=== PATIENT | male | born 1960 | race African-American/Black ===

== ENCOUNTER 2024-03-28 18:37 | Emergency (ER) | payer OTHER, SELFPAY ==
[2024-03-28 18:39] VITALS: BP 164/98
--- NOTE | 2024-03-28 19:53 | ED.GENMED ---
History of Present Illness
General
Chief Complaint: Nose Bleed
Time Seen by Provider: 03/28/24 19:52
History of Present Illness
History of Present Illness:
TIME OF INITIAL ENCOUNTER: 7:55 PM
HPI: The patient presents due to right-sided nosebleed that started 10 hours ago. He is not on any antiplatelets or anticoagulation. He has no pain. 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
decades.
EXAM:
GENERAL: Well appearing in no distress
HEENT: Patient arrived with a nasal clamp on with no active bleeding, a large defect through the nasal septum is noted 8:40 PM: I removed the Afrin soaked cotton and
NEUROLOGIC: Excellent strength all extremities, no obvious coordination deficits
PSYCHIATRIC: Appropriate mental status, normal insight and judgement
EXTREMITIES: Nontender, no edema, moves all extremities equally
SKIN: No rash, no lesions
NUMBER AND COMPLEXITY OF PROBLEMS ADDRESSED AT THE ENCOUNTER
� Chronic conditions affecting care: CHF, high blood pressure, hyperlipidemia, diabetes, renal insufficiency, atrial fibrillation not on anticoagulation
� Acute Exacerbation and/or Progression of Chronic Illness: This is an acute problem
� Differential Diagnosis includes: Anterior posterior epistaxis, epistaxis related to dry air
AMOUNT AND/OR COMPLEXITY OF DATA TO BE REVIEWED AND ANALYZED
� I performed an independent evaluation of and my interpretation is:
EKG:
CT:
X-rays:
Laboratory Studies:
Other:
� Review of other/old records: I reviewed records, the patient had normal platelet count in 2021
� Clinical information was obtained by an independent historian: None needed
� Prescriptions/Medications Considered but not given:
� Further testing considered but not performed:
RISK OF COMPLICATIONS AND/OR MORBIDITY OR MORTALITY OF PATIENT MANAGEMENT
� Social determinants of health affecting care: Lives at home
� Discussion with other providers:
� Escalation of care including admission/observation vs risk of discharge considered: The patient's nosebleed was significant up until the time he arrived to the parking lot. He was given a clamp and there has been no further
bleeding. I then used Afrin soaked cotton bilaterally.
ANY OTHER UPDATES:
8:40 PM: I removed the cotton and noted rather large septal defect with scant amount of blood. I used silver nitrate cauterization to a small area. Nasal clamp again placed.
9:10 PM: I removed the nasal clamp and there is no further bleeding�I have given the contact information for local ENT doctor but he states he has been to somebody at [facility] in the past
Past History
Past History
ED Past Medical History: CHF, HTN and Other (diabetes, cirrhosis, hld)
Social History
Tobacco: Non-smoker
Alcohol: None
Drug: None
Employment: Employed
Phy Exam
Physical Exam
Physical Exam:
See HPI
Course
Orders/Labs/Results
Orders:
Orders
03/28/24 19:58
Oxymetazoline HCl [Afrin Nasal [place]] 30 sprays .ROUTE .STK-MED ONE
Vital Signs
Initial and Last Documented VS:
Initial Vital Signs
Temp Pulse Resp BP Pulse Ox
36.6 C 97 20 164/98 98
03/28/24 18:39 03/28/24 18:39 03/28/24 18:39 03/28/24 18:39 03/28/24 18:39
Last Documented Vital Signs
Temp Pulse Resp BP Pulse Ox
36.6 C 97 20 164/98 98
03/28/24 18:39 03/28/24 18:39 03/28/24 18:39 03/28/24 18:39 03/28/24 18:39
*Critical Care Note
Total Time (30-74mins, 75-104mins- exclusive of procedures): Not Applicable
ED Attending Note
-
Portions of this chart may have been created with voice recognition software.� Occasional wrong word or��sound alike� substitutions may have occurred due to the inherent limitations of voice recognition software.
Discharge Plan
Departure
Patient Disposition: Home (Routine Discharge)
Date of Disposition: 03/28/24
Time of Disposition: 21:06
Patient with high blood pressure during this ER visit?: Yes
Discharge Problem:
Acute anterior epistaxis
Instructions: Nosebleeds (DC), BLOOD PRESSURE
Prescriptions:
No Action
hydrocodone-acetaminophen 5-325 mg tablet
1 tab PO Q6H PRN (Reason: back pain) Qty: 10 0RF
sennosides-docusate sodium 8.6-50 mg tablet
1 tab-cap PO BID PRN (Reason: constipation) Qty: 30 0RF
Referrals:
Harman Arce MD [Family Provider] -
Saran Martinez MD [Active] - Follow up in 2-3 days
Activity Restrictions/Additional Instructions:
There appears to be bleeding at the periphery of the nasal septal defect. I have given you the contact information for local ENT doctor, Dr. Martinez. Limit the use of Afrin. I more strongly recommend saline sprays and you can continue using Vaseline
as well. Your blood pressure is also very high and I strongly recommend you follow-up with primary care doctor for reassessment. Poorly controlled high blood pressure can lead to worsening nosebleeds as well.
Interventions
Interventions:
*Risk Screen - Suicide Last Done: 03/28/24 18:39
*General Assessment Last Done: 03/28/24 18:39
*Neglect/Abuse Screening Last Done: 03/28/24 18:39
*ED COVID-19 Vaccine History Last Done: 03/28/24 20:06
ED-EENT Assessment Last Done: 03/28/24 20:06
Discharge Date and Time
Print Language: PALESTINIAN
== END 2024-03-28 21:34 | disposition home or self-care (01) ==
LOC: EMR 18:37
PROVIDERS: EMERGENCY PHYSICIAN Emergency Medicine; FAMILY PHYSICIAN Family Medicine
DX: R04.0 Epistaxis (principal); I11.0 Hypertensive heart disease with heart failure; I50.9 Heart failure, unspecified; E11.9 Type 2 diabetes mellitus without complications; E78.5 Hyperlipidemia, unspecified
CPT/HCPCS: 30901; 99282

== ENCOUNTER 2024-09-11 04:17 | Emergency (ER) | payer OTHER, SELFPAY ==
[2024-09-11] VITALS (10 sets, daily range): BP systolic 92–129; BP diastolic 47–66; BMI 38.1
[2024-09-11 06:25] LABS: Glucose - Point of Care 215 mg/dl (70-99)
--- NOTE | 2024-09-11 06:34 | ED.GENMED ---
History of Present Illness
General
Chief Complaint: Skin Problem
Source: patient
Exam Limitations: none
Time Seen by Provider: 09/11/24 06:10
History of Present Illness
History of Present Illness:
63-year-old male presents from [facility] with worsening sacral wounds. He is chronically on oxygen. He has a history of a situs. He has no other complaints of abdominal pain or shortness of breath. No reported fever.
Past History
Past History
ED Past Medical History: CHF, HTN and Other (diabetes, cirrhosis, hld)
Social History
Tobacco: Non-smoker
Alcohol: None
Drug: None
Employment: Employed
Phy Exam
Physical Exam
Physical Exam:
General: Well-appearing male no acute respiratory distress
HEENT: Normocephalic atraumatic
Heart: Regular rate and rhythm
Lungs: Clear
Abdomen is distended but soft nontender
Ext: no cyanosis
Course
Orders/Labs/Results
Orders:
Orders
09/11/24 07:23
Complete Blood Count/With Diff Urgent
09/11/24 08:19
Basic Metabolic Panel Urgent
09/11/24 11:39
Potassium Urgent
Abnormal Lab Results
09/11/24 09/11/24 09/11/24
06:24 07:23 08:19
RBC 3.28 L 10^6/uL
(4.70-6.10)
Hgb 9.1 L g/dL
(13.0-18.0)
Hct 32.6 L %
(39.0-52.0)
MCV 99.4 H fL
(80.0-94.0)
MCHC 27.9 L g/dL
(33.0-37.0)
RDW 19.4 H %
(11.5-14.5)
Abs Immat Gran (auto) 0.1 H 10^3/uL
(0-0.05)
Absolute Neuts (auto) 8.3 H 10^3/uL
(1.4-6.5)
Absolute Lymphs (auto) 0.5 L 10^3/uL
(1.2-3.4)
Absolute Monos (auto) 0.8 H 10^3/uL
(0.1-0.6)
Immature Gran % 0.9 H %
(0-0.5)
Neutrophils % 82.0 H %
(42.2-75.2)
Lymphocytes % 4.8 L %
(20.5-51.1)
BUN 55 H mg/dl
(9-20)
Creatinine 5.7 H* mg/dL
(0.7-1.3)
Glucose 181 H mg/dl
(70-99)
POC Glucose 215 H mg/dl
(70-99)
09/11/24 07:23
09/11/24 11:39
Vital Signs
Initial and Last Documented VS:
Initial Vital Signs
Temp Pulse Resp BP Pulse Ox
99.8 F 101 18 108/63 98
09/11/24 04:21 09/11/24 04:21 09/11/24 04:21 09/11/24 04:21 09/11/24 04:21
Last Documented Vital Signs
Temp Pulse Resp BP Pulse Ox
99.8 F 88 13 107/55 99
09/11/24 04:21 09/11/24 10:15 09/11/24 10:15 09/11/24 10:00 09/11/24 10:15
*Pulse Oximetry
SaO2: 98
Nasal Cannula flow liters per minute: 4
Oxygen Mode of Delivery: Room air
Patient hypoxic: no
*Critical Care Note
Total Time (30-74mins, 75-104mins- exclusive of procedures): Not Applicable
Update Note
Update Note:
Patient reevaluated multiple times still with benign abdominal assessment. Spoke with the doctor at facility as well as the nurse. He was complaining of abdominal pain which he seems to do frequently there. Labs reviewed. No indication for
admission here he will be discharged back to facility to continue his hemodialysis.
Per staff at facility he was more complaining of abdominal pain and the concern was not his sacral wounds which look chronic
ED Attending Note
-
Portions of this chart may have been created with voice recognition software.� Occasional wrong word or��sound alike� substitutions may have occurred due to the inherent limitations of voice recognition software.
Discharge Plan
Departure
Patient Disposition: Home (Routine Discharge)
Date of Disposition: 09/11/24
Time of Disposition: 12:08
Patient with high blood pressure during this ER visit?: No
Discharge Problem:
ESRD (end stage renal disease)
Instructions: Abdominal Pain
Prescriptions:
No Action
hydrocodone-acetaminophen 5-325 mg tablet
1 tab PO Q6H PRN (Reason: back pain) Qty: 10 0RF
sennosides-docusate sodium 8.6-50 mg tablet
1 tab-cap PO BID PRN (Reason: constipation) Qty: 30 0RF
Referrals:
Ritesh Walter MD [Family Provider, Family Practice]
Activity Restrictions/Additional Instructions:
Continue dialysis as planned. Return if needed
Interventions
Interventions:
*Risk Screen - Suicide Last Done: 09/11/24 04:21
*General Assessment Last Done: 09/11/24 04:21
*Neglect/Abuse Screening Last Done: 09/11/24 04:21
*ED- Fall Risk Assessment Last Done: 09/11/24 04:30
*ED COVID-19 Vaccine History Last Done: 09/11/24 04:30
ED-Skin Assessment Last Done: 09/11/24 04:52
Discharge Date and Time
Print Language: BENGAL[place]
[2024-09-11 07:50] LABS: Hematocrit 32.6 % (39.0-52.0); Hemoglobin 9.1 g/dL (13.0-18.0); Mean Corp Hgb Conc. 27.9 g/dL (33.0-37.0); Mean Corpuscular Volume 99.4 fL (80.0-94.0); Nucleated Red Blood Cells % 0 % (-); Platelet Count 297 10^3/uL (130-400); Red Cell Dist. Width 19.4 % (11.5-14.5)
[2024-09-11 08:25] LABS: Anisocytosis 1+; Normal RBC Morphology No
[2024-09-11 08:26] LABS: Acanthocytes 1+; Basophilic Stippling 1+; Hypochromasia 1+; Polychromasia 1+; Target Cells 1+
[2024-09-11 08:47] LABS: Blood Urea Nitrogen 55 mg/dl (9-20); Calcium 9.5 mg/dl (8.4-10.2); Carbon Dioxide 30 mmol/L (22-30); Chloride 103 mmol/L (98-107); Estimated Creatinine Clearance 16 ml/min; Glucose 181 mg/dl (70-99); Sodium 137 mmol/L (135-145); eGFR 10.54
[2024-09-11 11:58] LABS: Potassium 5.1 mmol/L (3.5-5.1)
== END 2024-09-11 14:37 | disposition home or self-care (01) ==
LOC: EMR 04:17
PROVIDERS: Physician Assistant; EMERGENCY PHYSICIAN Student in an Organized Health Care Education/Training Program; FAMILY PHYSICIAN Family Medicine
DX: I13.2 Hypertensive heart and chronic kidney disease with heart failure and with stage 5 chronic kidney disease, or end stage renal disease (principal); E11.22 Type 2 diabetes mellitus with diabetic chronic kidney disease; N18.6 End stage renal disease; K74.60 Unspecified cirrhosis of liver; I50.9 Heart failure, unspecified; E78.5 Hyperlipidemia, unspecified; Z99.2 Dependence on renal dialysis; R10.9 Unspecified abdominal pain; L98.8 Other specified disorders of the skin and subcutaneous tissue; Z99.81 Dependence on supplemental oxygen
CPT/HCPCS: 99283; 80048; 82962; 84132; 85025